=== PATIENT | female | born 1935 | race Caucasian/White ===

== ENCOUNTER 2017-05-15 17:50 | Inpatient (IN) ==
[2017-05-15] MEDS ORDERED: ACETAMINOPHEN 325 MG TABLET PO PRN (19:05)
[2017-05-15] MEDS ORDERED: LIDOCAINE W/ SODIUM BICARB 0.5 ML SYR SUBD PRN (19:05)
[2017-05-15] MEDS ORDERED: DOCUSATE 100 MG CAPSULE PO PRN (19:05)
[2017-05-15] MEDS ORDERED: NORMAL SALINE 10 ML SYRINGE FLUSH IVP PRN (19:05)
[2017-05-15] MEDS ORDERED: ONDANSETRON 4 MG/2 ML VIAL IVP PRN (19:05)
[2017-05-15] MEDS ORDERED: CALCIUM CARBONATE 500 MG (TUMS) CHEWABLE TABLET PO PRN (19:05)
[2017-05-15] MEDS ORDERED: HYDROcodone-APAP 5 MG -325 MG TABLET PO PRN (19:12)
[2017-05-15] MEDS: OMEPRAZOLE 40 MG CAPSULE PO SCH (21:20)
--- NOTE | 2017-05-15 21:40 | PDOC ---
HPI - History of Present Illness Date of Service: 05/15/17 Time of Service: 21:00 Chief Complaint: Left hip pain History of Present Illness: This very pleasant 81-year-old female with prior history of coronary artery disease post stents in March 2016, off of Plavix, and hypercholesterolemia, and dementia, according to her daughter, who presents after a fall today. Family she also has chronic dizziness and she had a fall back in October 2016 in which she had a concussion and a small fairly punctate and nonsurgical cerebral hemorrhage. Be that as it may, the patient states that she got up from a chair in her house, felt vertigo-like dizziness, twisted her feet, and fell. She was sent to the last emergency room, and found to have a left hip fracture. She was transferred here for definitive care of her fracture. She's not had a fracture of the bone before. She denies any chest pain, shortness breath, kidney problems, history of stroke, or other issues that would preclude her from doing surgery tomorrow. Labs were done in [place] but unfortunately were not back or sent with the transfer packet so I will have to repeat those now. She does have tenderness that is worsened or exacerbated when her left hip moves. She states Tylenol helped her pain in [place]. She has more than 4 metabolic equivalents in terms of her activities. Past Medical History Medical History: 1. Coronary artery disease, status post stent placement in 2016. 2. Chronic dizziness/probable vertigo or Mnire's disease possibility. 3. Hypercholesterolemia. 4. Chronic nausea. Surgical History: 1. Hysterectomy with appendectomy. 2. Cholecystectomy. 3. Colonoscopy and EGD in the past. Pertinent Family History: Apparently sister had a history of colon cancer. Past Social History: Does not smoke or drink alcohol. Has 2 children, has lived [place] a [place] in the [facility] for the past 60 years is for 60 years. Tobacco Use: Former Smoker (Quit smoking about a year and half ago) In the Past 12 Months, Have Used or Abuse Any of the Following Substance: None Alcohol Use: None Medication / Allergies Home Medications: Home Medications 3 Medication Instructions Recorded Confirmed Type Aspirin 1 tab PO DAILY 04/28/09 02/19/15 History Caltrate 1 tab PO DAILY 04/28/09 02/19/15 History Omeprazole 1 cap PO BID cap 01/22/15 02/19/15 History Ondansetron [Ondansetron Odt] 1 tab SL PRN PRN tab 01/22/15 02/19/15 History Cholecalciferol (Vitamin D3) 1,000 unit PO DAILY 02/19/15 02/19/15 History [Vitamin D] Allergies/Adverse Reactions: Allergies 3 Allergy/AdvReac Type Severity Reaction Status Date / Time Shellfish *RETIRED-11/16/11 Allergy Severe SHORTNESS Verified 02/19/15 08:01 [Shellfish] OF BREATH Sulfa (Sulfonamide Allergy Severe SHORTNESS Verified 02/19/15 08:01 Antibiotics) OF BREATH codeine [Codeine] AdvReac Intermediate DIZZINESS Verified 02/19/15 08:01 Review of Systems - Review of Systems All Systems: Reviewed & No Additional Complaints Except as Stated (Additional review systems and it was negative other than that discussed in the history of present illness and that noted below.) - Constitutional Constitutional: REPORTS: Negative System Review - Respiratory Respiratory: REPORTS: Negative System Review - Cardiovascular Cardiovascular: REPORTS: Negative System Review - Gastrointestinal Gastrointestinal / Abdominal: REPORTS: Nausea (States is chronic in nature, has been worked up with EGD, colonoscopy,) - Genitourinary Genitourinary: REPORTS: Other (Frequent urinary infections in the past) - Hematlogic / Lymphatic Hematologic / Lymphatic: REPORTS: Easy Bleeding/Bruising (Worse on Plavix, but has improved since Plavix is been discontinued) - Neurological Neurologic: REPORTS: Other (Shuffles occasionally.) Exam - Vitals Vital Signs: Vital Signs Height 5 ft 7 in Weight 120 lb - General General Appearance: No Acute Distress, Cooperative - Head Head Exam: Normal Inspection, Normocephalic, Atraumatic - Eye Eye Exam: POSITIVE: No Scleral Icterus - ENT ENT Exam: POSITIVE: Mucous Membranes Moist - Neck Neck Exam: Normal Inspection, No Tenderness, No Lymphadenopathy, No Thyromegaly - Respiratory Respiratory Exam: POSITIVE: Clear to Auscultation - Bilaterally, Breathing Non Labored - Cardiovascular Cardiovascular Exam: POSITIVE: RRR, No Murmur, No Clicks, No Gallops, No Rubs, No JVD - GI/Abdominal GI/Abdominal Exam: POSITIVE: Normal Bowel Sounds, Non Tender, Non Distended, Soft - Rectal Rectal Exam: POSITIVE: Deferred - External Exam: POSITIVE: Deferred Exam: POSITIVE: Sloan Catheter in Place (Urine appears clear) - Extremities Extremities Exam: POSITIVE: No Clubbing Present, No Edema Present, No Cyanosis Present Additional Extremities Exam Details: Left leg is shorter and externally rotated at the hip. Tenderness on left hip. No bruising. - Neurological Neurological Exam: POSITIVE: Alert, Oriented x 3 (Oriented to person place time situation tonight.), No Facial Droop, Speech Intact / Clear - Psychiatric Psychiatric Exam: POSITIVE: Normal Affect, Normal Mood Results - Labs Additional Lab Results: I have ordered several labs including a CMP, CBC with differential, PT and INR, will also get type and screen, folate, vitamin B-12, and vitamin D level - EKG Data -: EKG Interpreted by Me (I have ordered an EKG and it is pending) - Imaging Status: Image Reviewed by Me (I did look at the left hip films, plain films from [place], and they reveal a left femoral neck fracture.) Assessment and Plan - Patient Problems (1) Closed left hip fracture Current Visit: Yes Status: Acute Code(s): S72.002A - Fracture of unspecified part of neck of left femur, initial encounter for closed fracture Qualifiers: Encounter type: initial encounter Qualified Code(s): S72.002A - Fracture of unspecified part of neck of left femur, initial encounter for closed fracture (2) Coronary artery disease Current Visit: Yes Status: Acute Code(s): I25.10 - Atherosclerotic heart disease of [place] coronary artery without angina pectoris Qualifiers: Coronary Disease-Associated Artery/Lesion type: [place] artery [place] vs. transplanted heart: [place] heart Associated angina: without angina Qualified Code(s): I25.10 - Atherosclerotic heart disease of [place] coronary artery without angina pectoris (3) Chronic vertigo Current Visit: Yes Status: Acute Code(s): R42 - Dizziness and giddiness (4) Chronic nausea Current Visit: Yes Status: Acute Code(s): R11.0 - Nausea (5) Dementia Current Visit: Yes Status: Acute Code(s): F03.90 - Unspecified dementia without behavioral disturbance Qualifiers: Dementia type: unspecified type Dementia behavioral disturbance: without behavioral disturbance Qualified Code(s): F03.90 - Unspecified dementia without behavioral disturbance - Assessment / Plan Additional Assessment/Plan Details: Admit the patient. Claros's traction/nothing by mouth postmidnight/orthopedic consult/DVT prophylaxis postoperatively/PT and OT/try to discontinue Sloan catheter within 2 days of surgery/pain control/ Hold off on nortriptyline for now. Try to hold off on Carafate. May need to trial of proton pump inhibitor for chronic nausea Talked about swing bed, she may be interested in approaching a swing bed back in [place], [place], but will see how she does initially after surgery. Get labs today, get EKG today. Based on AHA/ACC nonvascular perioperative guidelines and evaluations, this patient would be cleared to proceed to the operating room with postoperative risk stratification. I recommend resuming aspirin on postop day #1. Patient is DO NOT RESUSCITATE Plan above discussed with patient and her daughter and they agreed.
[2017-05-15 21:59] LABS: BASOPHILS # (AUTO) 0.02 10*3/UL; BASOPHILS % (AUTO) 0.2 % (0-1); EOSINOPHILS # (AUTO) 0.05 10*3/UL; EOSINOPHILS % (AUTO) 0.6 % (0-8); Hematocrit [HCT] 36.9 % (37.0-47.0); Hemoglobin [HGB] 11.9 g/dL (12.0-16.0); LYMPHOCYTES # (AUTO) 1.18 10*3/uL; MEAN CORPUSCULAR HGB CONC 32.2 g/dL (33-37); MEAN CORPUSCULAR VOLUME 89.8 FL (81-99); MEAN PLATELET VOLUME 11.4 FL (7.4-12.2); MONOCYTES # (AUTO) 0.54 10*3/UL (0.3-0.8); MONOCYTES % (AUTO) 6.1 % (5-15); NEUTROPHILS # (AUTO) 6.99 10*3/UL; NEUTROPHILS % (AUTO) 79.6 % (50-80); RED BLOOD COUNT 4.11 10^6/uL (4.20-5.40)
[2017-05-15 22:04] LABS: BLOOD UREA NITROGEN 17 mg/dL (7-22); BUN/CREATININE RATIO 24.28 (6-20); SERUM ALBUMIN 3.9 g/dL (3.5-4.8)
--- NOTE | 2017-05-15 22:16 | EKG ---
[address] [place] [address] Measurements Intervals [place] Rate: 84 P: 67 MS: 169 QRS: -42 QRSD: 92 T: 57 QT: 372 QTc: 413 Interpretive Statements SINUS RHYTHM WITH SINUS ARRHYTHMIA LEFT AXIS DEVIATION [QRS AXIS < -30] RIGHT VENTRICULAR DELAY No previous ECG available for comparison Electronically Signed On 05-16-17 11:09:20 [facility] by Mitch Valderrama [email or web address]
[2017-05-15 22:36] LABS: PLATELET MORPHOLOGY COMMENT NORMAL MORPHOLOGY (NORM); RBC MORPHOLOGY COMMENT NORMAL MORPHOLOGY (NORM); WBC MORPHOLOGY COMMENT NORMAL MORPHOLOGY (NORM)
[2017-05-16] MEDS: Lactated Ringers 1,000 ML PRIMARY IV SCH ×3 (00:55→18:52)
[2017-05-16] MEDS: HYDROmorphone 2 MG/1 ML IVP PRN ×2 (01:11→08:31)
[2017-05-16 05:34] LABS: BASOPHILS # (AUTO) 0.03 10*3/UL; BASOPHILS % (AUTO) 0.5 % (0-1); EOSINOPHILS % (AUTO) 1.6 % (0-8); Hematocrit [HCT] 36.1 % (37.0-47.0); Hemoglobin [HGB] 11.7 g/dL (12.0-16.0); LYMPHOCYTES # (AUTO) 0.95 10*3/uL; MEAN CORPUSCULAR HEMOGLOBIN 29.2 PG (27-31); MEAN CORPUSCULAR HGB CONC 32.4 g/dL (33-37); MONOCYTES # (AUTO) 0.51 10*3/UL (0.3-0.8); MONOCYTES % (AUTO) 8.1 % (5-15); NEUTROPHILS # (AUTO) 4.67 10*3/UL; NEUTROPHILS % (AUTO) 74.4 % (50-80); RED BLOOD COUNT 4.01 10^6/uL (4.20-5.40)
[2017-05-16 05:54] LABS: BLOOD UREA NITROGEN 18 mg/dL (7-22); BUN/CREATININE RATIO 25.71 (6-20)
[2017-05-16 05:59] LABS: PLATELET MORPHOLOGY COMMENT NORMAL MORPHOLOGY (NORM); RBC MORPHOLOGY COMMENT NORMAL MORPHOLOGY (NORM); WBC MORPHOLOGY COMMENT NORMAL MORPHOLOGY (NORM)
[2017-05-16] MEDS ORDERED: LIDOCAINE HCL 2 % 10 ML JELLY URO-JECT TOPICAL PRN (06:34)
--- NOTE | 2017-05-16 08:29 | CONSULT ---
Consult Note - Consult Consult Date: 05/16/17 Reason for Consult: PreOp Consulation : Ortho Primary Care Provider: JOSE MENDES - History of Present Illness History of Present Illness: Billie is a pleasant 81-year-old female who got tripped up yesterday afternoon, falling in her home and breaking her left femoral neck. I spoke with the emergency room physician and Hema Russell. I was able to review her x-rays. It does not look like a fracture could be treated with screw fixation. It is varus impaction rather than valgus impaction. She probably would not do well with screw fixation. She was admitted through the emergency room directly to Dr. Chavis's service. I had a chance to visit with her this morning. Her daughter was present at the same time. She is in need of left hip hemiarthroplasty to replace the fractured femoral head. Exam reveals a very pleasant female. She is awake and alert sitting semi- reclined in her hospital bed. Left lower extremity is in 5 pounds of [place] traction. Skin laterally is intact. She is not overweight. X-rays reveal a left femoral neck fracture subcapital in nature. It appears to be in varus. Displaced on the lateral view. Impression: Displaced left femoral neck fracture. Plan: Is to recommend left hip hemiarthroplasty. Risks were discussed with the patient and her daughter. These include but are not limited to infection, femur fracture, leg length discrepancy, hip dislocation, pain, blood clot, anesthetic complications. She understands and agrees to proceed. Informed consent paperwork will be filled out. Plan on doing this this afternoon. Patient will remain nothing by mouth until then. Past Medical History Medical History: 1. Coronary artery disease, status post stent placement in 2017. 2. Chronic dizziness/probable vertigo or Mnire's disease possibility. 3. Hypercholesterolemia. 4. Chronic nausea. Surgical History: 1. Hysterectomy with appendectomy. 2. Cholecystectomy. 3. Colonoscopy and EGD in the past. Pertinent Family History: Apparently sister had a history of colon cancer. Past Social History: Does not smoke or drink alcohol. Has 2 children, has lived [place] a ranch in the [facility] area for the past 60 years is for 60 years. Tobacco Use: Former Smoker (Quit smoking about a year and half ago) In the Past 12 Months, Have Used or Abuse Any of the Following Substance: None Alcohol Use: None Medication / Allergies Home Medications: Home Medications 3 Medication Instructions Recorded Confirmed Type Aspirin 1 tab PO DAILY 04/28/09 02/19/15 History Caltrate 1 tab PO DAILY 04/28/09 02/19/15 History Omeprazole 1 cap PO BID cap 01/22/15 02/19/15 History Ondansetron [Ondansetron Odt] 1 tab SL PRN PRN tab 01/22/15 02/19/15 History Cholecalciferol (Vitamin D3) 1,000 unit PO DAILY 02/19/15 02/19/15 History [Vitamin D] Allergies/Adverse Reactions: Allergies 3 Allergy/AdvReac Type Severity Reaction Status Date / Time Shellfish *RETIRED-11/16/11 Allergy Severe SHORTNESS Verified 02/19/15 08:01 [Shellfish] OF BREATH Sulfa (Sulfonamide Allergy Severe SHORTNESS Verified 02/19/15 08:01 Antibiotics) OF BREATH codeine [Codeine] AdvReac Intermediate DIZZINESS Verified 02/19/15 08:01 meperidine [From Demerol] AdvReac NOT Verified 05/16/17 04:33 APPLICABLE Exam - Vitals Vital Signs: Vital Signs Temperature 98.2 F Temperature Source Temporal Artery Scan Pulse Rate [Pulse Oximeter] 83 Respiratory Rate 16 Blood Pressure [Right Arm] 163/78 Pulse Ox 90 Oxygen Delivery Method Room Air Height 5 ft 7 in Weight 120 lb Results - Labs CBC and BMP: 05/16/17 05:05 05/16/17 05:05
[2017-05-16] MEDS: OMEPRAZOLE 40 MG CAPSULE PO SCH (08:47)
[2017-05-16] MEDS ORDERED: CHOLECALCIFEROL 1000 IU TABLET PO SCH ×2 (09:00)
[2017-05-16 10:18] LABS: BILIRUBIN,URINE NEGATIVE (NEG); CLARITY,URINE CLEAR (CLEAR); COLOR,URINE YELLOW; GLUCOSE, URINE (UA) NEGATIVE (NEG); OCCULT BLOOD,URINE SMALL (NEG); PH,URINE 7.5 (5.0-8.5); PROTEIN,URINE TRACE mg/dl (NEG)
[2017-05-16 10:31] LABS: BACTERIA,URINE MANY; URINE SAMPLE TYPE CATH SPECIMEN; WBC,URINE 15-20
[2017-05-16] MEDS ORDERED: Lactated Ringers 1,000 ML PRIMARY IV ONE ×2 (12:09→16:08)
[2017-05-16] MEDS ORDERED: ceFAZolin Inj 2gm (Premix) 2 GM/50 ML BAG IV ONE ×2 (12:25→13:30)
[2017-05-16] MEDS ORDERED: DEXAMETHASONE PF 10 MG/1 ML VIAL ONE (12:25)
[2017-05-16] MEDS ORDERED: ONDANSETRON 4 MG/2 ML VIAL ONE (12:25)
[2017-05-16] MEDS ORDERED: MIDAZOLAM 5 MG/1 ML ONE (12:29)
[2017-05-16] MEDS ORDERED: PROPOFOL 10 MG/1 ML (200 MG/20 ML) VIAL IV ONE ×2 (12:29→13:26)
[2017-05-16] MEDS ORDERED: fentaNYL Inj 100 MCG/2 ML VIAL ONE (12:29)
[2017-05-16] MEDS ORDERED: Sodium Chloride 0.9% 2,000 ML ONE (13:08)
[2017-05-16] MEDS ORDERED: Sodium Chloride 0.9% 0 ML ONE (13:08)
[2017-05-16] MEDS ORDERED: KETAMINE 100 MG/1 ML - 5 ML ONE (13:26)
[2017-05-16] MEDS ORDERED: ePHEDrine Inj 50 MG/ML AMP ONE (13:55)
[2017-05-16] MEDS ORDERED: TRANEXAMIC ACID 1,000 MG / 10 ML VIAL ONE (14:28)
[2017-05-16] MEDS ORDERED: Sodium Chloride 0.9% 100 ML IV ONE (14:29)
[2017-05-16] MEDS ORDERED: SUFENTANIL 50 MCG/1 ML ONE (14:32)
[2017-05-16] MEDS ORDERED: HEPARIN 10,000 UNIT/1 ML ONE (14:33)
[2017-05-16] MEDS ORDERED: Sodium Chloride 0.9% vial 40 ML ONE (14:48)
[2017-05-16] MEDS ORDERED: BUPivacaine Liposome/PF (Exparel) Inj 20ml vial INFIL ONE (14:49)
[2017-05-16] MEDS ORDERED: HYDROmorphone 2 MG/1 ML IVP PRN (14:59)
[2017-05-16] MEDS ORDERED: LIDOCAINE W/ SODIUM BICARB 0.5 ML SYR SUBD PRN (14:59)
[2017-05-16] MEDS ORDERED: NORMAL SALINE 10 ML SYRINGE FLUSH IVP PRN (14:59)
[2017-05-16] MEDS ORDERED: Lactated Ringers 1,000 ML PRIMARY IV SCH (15:00)
[2017-05-16] MEDS ORDERED: Sodium Chloride 0.9% 250 ML IV ONE (15:16)
[2017-05-16] MEDS ORDERED: PHENYLEPHRINE 10,000 MCG/1 ML VIAL ONE (15:17)
[2017-05-16] MEDS ORDERED: Sodium Chloride 0.9% 500 ML ONE (16:13)
--- NOTE | 2017-05-16 16:34 | ORTHO.OP ---
Surgery Date: 05/16/17 Preoperative Diagnosis: Left hip femoral neck fracture Postoperative Diagnosis: Same Procedure: Left hip hemiarthroplasty using the Biomet echo fracture hip system Surgeon: Tate Manley MD Foot Drill Operator: OLAF Yates Anesthesia Provider: Jose Smith CRNA Anesthesia Type: General Estimated Blood Loss (mL): 370 Fluids: 3200 mL of lactated Ringer's Pathology: Femoral head sent to pathology Indications: Left hip fracture Findings: Fractured femoral neck Complications: None Operative Summary: Extubated and taken to recovery room in stable condition
--- NOTE | 2017-05-16 17:25 | CRNA.PROGR ---
Anesthesia Recovery Phase I - Post Anesthesia Evaluation Patient's Condition on Arrival in Phase I: Stable Pain Level: 0
--- NOTE | 2017-05-16 17:27 | CRNA.PROGR ---
Anesthesia Time - - Start date: 05/16/17 End date: 05/16/17 - Procedure/Recovery Time Anesthesia : Time In: 13:24 Anesthesia : Time Out: 17:21 Anesthesia : Total Time: 237 - Total Anesthesia Time Total Anesthesia Time (minutes): 237 - Other Weight: 54.431 kg Height: 5 ft 7 in Body Mass Index (BMI): 18.8 Physical Status: P2 Anesthesia Type: General Anesthesia : ET
[2017-05-16] MEDS ORDERED: MORPHINE SULFATE 2 MG/1 ML IVP PRN (18:31)
[2017-05-16] MEDS: D5-1/2NS + 20mEq KCL 1,000 ML PRIMARY IV SCH (19:23)
--- NOTE | 2017-05-16 19:38 | PDOC(PROG) ---
Date and Time of Service: 05/16/2017, 1935 Interval History: This patient as she just rolled back into the room after surgery and postoperative holding. No complaints of chest pain, shortness breath, but does have controlled hip pain at this time. Objective : Data - Labs CBC and BMP: 05/16/17 05:05 05/16/17 05:05 Additional Lab Results: Laboratory Results 05/15/17 05/15/17 05/15/17 Range/Units 21:51 21:51 21:51 WBC 8.79 (4.8-10.8) 10^3/uL RBC 4.11 L (4.20-5.40) 10^6/uL Hgb 11.9 L (12.0-16.0) g/dL Hct 36.9 L (37.0-47.0) % MCV 89.8 (81-99) FL MCH 29.0 (27-31) PG MCHC 32.2 L (33-37) g/dL RDW Std Deviation 41.2 (39-50) fL RDW Coeff of Michael 12.8 (11.5-14.5) % Plt Count 152 (140-350) 10*3/uL MPV 11.4 (7.4-12.2) FL Immature Gran % (Auto) 0.1 (0-5) % Neut % (Auto) 79.6 (50-80) % Lymph % (Auto) 13.4 (10-50) % Luce % (Auto) 6.1 (5-15) % Eos % (Auto) 0.6 (0-8) % Baso % (Auto) 0.2 (0-1) % Immature Gran # (Auto) 0.01 10*3/UL Neut # (Auto) 6.99 10*3/UL Lymph # (Auto) 1.18 10*3/uL Luce # (Auto) 0.54 (0.3-0.8) 10*3/UL Eos # (Auto) 0.05 10*3/UL Baso # (Auto) 0.02 10*3/UL WBC Morphology Comment Normal morphology (NORM) Plt Morphology Comment Normal morphology (NORM) RBC Morph Comment Normal morphology (NORM) PT 10.6 (9.7-11.4) secs INR 1.00 (0.00-5.90) N/A APTT 25.9 (22.6-36.2) SECS Sodium 139 (135-145) meq/L Potassium 3.8 (3.8-5.2) meq/L Chloride 102 (98-112) meq/L Carbon Dioxide 27 (23-33) meq/L Anion Gap 10 (5-20) BUN 17 (7-22) mg/dL Creatinine 0.7 (0.50-1.20) mg/dL BUN/Creatinine Ratio 24.28 H (6-20) Glucose 138 H (78-110) mg/dL Calculated Osmolality 291.0 (267-292) mOsm/kg Calcium 9.3 (8.7-10.7) mg/dL Total Bilirubin 1.0 (0.3-1.2) mg/dL AST 37 (8-39) IU/L ALT 43 (9-52) IU/L Alkaline Phosphatase 59 (38-126) IU/L Total Protein 6.2 (6.1-8.0) g/dL Albumin 3.9 (3.5-4.8) g/dL Globulin 2.3 L (2.50-4.10) g/dL Albumin/Globulin Ratio 1.60 (1.3-2.0) mg/g Vitamin B12 (239-931) pg/mL Vitamin D 25-Hydroxy (30-100) NG/ML Serum Folate (2.76-20.0) NG/ML Ur Collection Type Urine Color Urine Clarity (CLEAR) Urine pH (5.0-8.5) Ur Specific [place] (1.005-1.030) Urine Protein (NEG) mg/dl Urine Glucose (UA) (NEG) mg/dL Urine Ketones (NEG) Urine Occult Blood (NEG) Urine Nitrate (NEG) Urine Bilirubin (NEG) Urine Urobilinogen (0.2) mg/dL Ur Leukocyte Esterase (NEG) Urine RBC (NONE) /hpf Urine WBC (NONE) Ur Squamous Epith Cells (NONE) Ur Renal Epithelial Cell (NONE) Urine Crystals Urine Bacteria (NONE) Urine Casts Urine Mucus (NONE) Urine Trichomonas (NONE) Urine Yeast (NONE) Blood Type Antibody Screen 05/15/17 05/15/17 05/15/17 Range/Units 21:51 21:51 21:51 WBC (4.8-10.8) 10^3/uL RBC (4.20-5.40) 10^6/uL Hgb (12.0-16.0) g/dL Hct (37.0-47.0) % MCV (81-99) FL MCH (27-31) PG MCHC (33-37) g/dL RDW Std Deviation (39-50) fL RDW Coeff of Michael (11.5-14.5) % Plt Count (140-350) 10*3/uL MPV (7.4-12.2) FL Immature Gran % (Auto) (0-5) % Neut % (Auto) (50-80) % Lymph % (Auto) (10-50) % Luce % (Auto) (5-15) % Eos % (Auto) (0-8) % Baso % (Auto) (0-1) % Immature Gran # (Auto) 10*3/UL Neut # (Auto) 10*3/UL Lymph # (Auto) 10*3/uL Luce # (Auto) (0.3-0.8) 10*3/UL Eos # (Auto) 10*3/UL Baso # (Auto) 10*3/UL WBC Morphology Comment (NORM) Plt Morphology Comment (NORM) RBC Morph Comment (NORM) PT (9.7-11.4) secs INR (0.00-5.90) N/A APTT (22.6-36.2) SECS Sodium (135-145) meq/L Potassium (3.8-5.2) meq/L Chloride (98-112) meq/L Carbon Dioxide (23-33) meq/L Anion Gap (5-20) BUN (7-22) mg/dL Creatinine (0.50-1.20) mg/dL BUN/Creatinine Ratio (6-20) Glucose (78-110) mg/dL Calculated Osmolality (267-292) mOsm/kg Calcium (8.7-10.7) mg/dL Total Bilirubin (0.3-1.2) mg/dL AST (8-39) IU/L ALT (9-52) IU/L Alkaline Phosphatase (38-126) IU/L Total Protein (6.1-8.0) g/dL Albumin (3.5-4.8) g/dL Globulin (2.50-4.10) g/dL Albumin/Globulin Ratio (1.3-2.0) mg/g Vitamin B12 319 (239-931) pg/mL Vitamin D 25-Hydroxy 25.1 L (30-100) NG/ML Serum Folate > 20.0 H (2.76-20.0) NG/ML Ur Collection Type Urine Color Urine Clarity (CLEAR) Urine pH (5.0-8.5) Ur Specific [place] (1.005-1.030) Urine Protein (NEG) mg/dl Urine Glucose (UA) (NEG) mg/dL Urine Ketones (NEG) Urine Occult Blood (NEG) Urine Nitrate (NEG) Urine Bilirubin (NEG) Urine Urobilinogen (0.2) mg/dL Ur Leukocyte Esterase (NEG) Urine RBC (NONE) /hpf Urine WBC (NONE) Ur Squamous Epith Cells (NONE) Ur Renal Epithelial Cell (NONE) Urine Crystals Urine Bacteria (NONE) Urine Casts Urine Mucus (NONE) Urine Trichomonas (NONE) Urine Yeast (NONE) Blood Type A POSITIVE Antibody Screen Negative 05/16/17 05/16/17 05/16/17 Range/Units 05:05 05:05 05:05 WBC 6.27 (4.8-10.8) 10^3/uL RBC 4.01 L (4.20-5.40) 10^6/uL Hgb 11.7 L (12.0-16.0) g/dL Hct 36.1 L (37.0-47.0) % MCV 90.0 (81-99) FL MCH 29.2 (27-31) PG MCHC 32.4 L (33-37) g/dL RDW Std Deviation 40.9 (39-50) fL RDW Coeff of Michael 12.7 (11.5-14.5) % Plt Count 140 (140-350) 10*3/uL MPV 12.0 (7.4-12.2) FL Immature Gran % (Auto) 0.2 (0-5) % Neut % (Auto) 74.4 (50-80) % Lymph % (Auto) 15.2 (10-50) % Luce % (Auto) 8.1 (5-15) % Eos % (Auto) 1.6 (0-8) % Baso % (Auto) 0.5 (0-1) % Immature Gran # (Auto) 0.01 10*3/UL Neut # (Auto) 4.67 10*3/UL Lymph # (Auto) 0.95 10*3/uL Luce # (Auto) 0.51 (0.3-0.8) 10*3/UL Eos # (Auto) 0.10 10*3/UL Baso # (Auto) 0.03 10*3/UL WBC Morphology Comment Normal morphology (NORM) Plt Morphology Comment Normal morphology (NORM) RBC Morph Comment Normal morphology (NORM) PT 10.3 (9.7-11.4) secs INR 0.97 (0.00-5.90) N/A APTT 27.2 (22.6-36.2) SECS Sodium 139 (135-145) meq/L Potassium 4.0 (3.8-5.2) meq/L Chloride 104 (98-112) meq/L Carbon Dioxide 27 (23-33) meq/L Anion Gap 8 (5-20) BUN 18 (7-22) mg/dL Creatinine 0.7 (0.50-1.20) mg/dL BUN/Creatinine Ratio 25.71 H (6-20) Glucose 103 (78-110) mg/dL Calculated Osmolality 289.0 (267-292) mOsm/kg Calcium 9.1 (8.7-10.7) mg/dL Total Bilirubin (0.3-1.2) mg/dL AST (8-39) IU/L ALT (9-52) IU/L Alkaline Phosphatase (38-126) IU/L Total Protein (6.1-8.0) g/dL Albumin (3.5-4.8) g/dL Globulin (2.50-4.10) g/dL Albumin/Globulin Ratio (1.3-2.0) mg/g Vitamin B12 (239-931) pg/mL Vitamin D 25-Hydroxy (30-100) NG/ML Serum Folate (2.76-20.0) NG/ML Ur Collection Type Urine Color Urine Clarity (CLEAR) Urine pH (5.0-8.5) Ur Specific [place] (1.005-1.030) Urine Protein (NEG) mg/dl Urine Glucose (UA) (NEG) mg/dL Urine Ketones (NEG) Urine Occult Blood (NEG) Urine Nitrate (NEG) Urine Bilirubin (NEG) Urine Urobilinogen (0.2) mg/dL Ur Leukocyte Esterase (NEG) Urine RBC (NONE) /hpf Urine WBC (NONE) Ur Squamous Epith Cells (NONE) Ur Renal Epithelial Cell (NONE) Urine Crystals Urine Bacteria (NONE) Urine Casts Urine Mucus (NONE) Urine Trichomonas (NONE) Urine Yeast (NONE) Blood Type Antibody Screen 05/16/17 Range/Units 10:13 WBC (4.8-10.8) 10^3/uL RBC (4.20-5.40) 10^6/uL Hgb (12.0-16.0) g/dL Hct (37.0-47.0) % MCV (81-99) FL MCH (27-31) PG MCHC (33-37) g/dL RDW Std Deviation (39-50) fL RDW Coeff of Michael (11.5-14.5) % Plt Count (140-350) 10*3/uL MPV (7.4-12.2) FL Immature Gran % (Auto) (0-5) % Neut % (Auto) (50-80) % Lymph % (Auto) (10-50) % Luce % (Auto) (5-15) % Eos % (Auto) (0-8) % Baso % (Auto) (0-1) % Immature Gran # (Auto) 10*3/UL Neut # (Auto) 10*3/UL Lymph # (Auto) 10*3/uL Luce # (Auto) (0.3-0.8) 10*3/UL Eos # (Auto) 10*3/UL Baso # (Auto) 10*3/UL WBC Morphology Comment (NORM) Plt Morphology Comment (NORM) RBC Morph Comment (NORM) PT (9.7-11.4) secs INR (0.00-5.90) N/A APTT (22.6-36.2) SECS Sodium (135-145) meq/L Potassium (3.8-5.2) meq/L Chloride (98-112) meq/L Carbon Dioxide (23-33) meq/L Anion Gap (5-20) BUN (7-22) mg/dL Creatinine (0.50-1.20) mg/dL BUN/Creatinine Ratio (6-20) Glucose (78-110) mg/dL Calculated Osmolality (267-292) mOsm/kg Calcium (8.7-10.7) mg/dL Total Bilirubin (0.3-1.2) mg/dL AST (8-39) IU/L ALT (9-52) IU/L Alkaline Phosphatase (38-126) IU/L Total Protein (6.1-8.0) g/dL Albumin (3.5-4.8) g/dL Globulin (2.50-4.10) g/dL Albumin/Globulin Ratio (1.3-2.0) mg/g Vitamin B12 (239-931) pg/mL Vitamin D 25-Hydroxy (30-100) NG/ML Serum Folate (2.76-20.0) NG/ML Ur Collection Type Cath specimen Urine Color Yellow Urine Clarity Clear (CLEAR) Urine pH 7.5 (5.0-8.5) Ur Specific [place] 1.020 (1.005-1.030) Urine Protein Trace (NEG) mg/dl Urine Glucose (UA) Negative (NEG) mg/dL Urine Ketones 15 (NEG) Urine Occult Blood Small (NEG) Urine Nitrate Negative (NEG) Urine Bilirubin Negative (NEG) Urine Urobilinogen 2.0 (0.2) mg/dL Ur Leukocyte Esterase Trace (NEG) Urine RBC 5-10 (NONE) /hpf Urine WBC 15-20 (NONE) Ur Squamous Epith Cells None (NONE) Ur Renal Epithelial Cell None (NONE) Urine Crystals None Urine Bacteria Many (NONE) Urine Casts None Urine Mucus Rare (NONE) Urine Trichomonas None (NONE) Urine Yeast None (NONE) Blood Type Antibody Screen Objective : Exam - General General Appearance: No Acute Distress, Cooperative Additional General Exam Details: Vital Signs - Last Taken Temperature 98.2 F 05/16/17 18:26 Pulse Rate 98 05/16/17 18:59 Respiratory Rate 18 05/16/17 18:59 Blood Pressure 133/67 05/16/17 18:30 Pulse Ox 97 05/16/17 18:30 - Head Head Exam: Normal Inspection, Normocephalic, Atraumatic - Eye Eye Exam: No Scleral Icterus - ENT ENT Exam: Mucous Membranes Moist - Respiratory Respiratory Exam: Clear to Auscultation - Bilaterally, Breathing Non Labored - Cardiovascular Cardiovascular Exam: RRR, No Murmur, No Clicks, No Gallops, No Rubs, No JVD - GI/Abdominal GI/Abdominal Exam: Normal Bowel Sounds, Non Tender, Non Distended, Soft - Extremities Extremities Exam: No Clubbing Present, No Edema Present, No Cyanosis Present Additional Extremities Exam Details: Left hip, incision, dressed, clean dry and intact, ice is in place, adductor pillow is in place - Neurological Neurological Exam: Alert, No Facial Droop, Speech Intact / Clear Additional Neurological Exam Details: Granddaughter's report that the patient is quite confused and doesn't know where she is at. Assessment and Plan - Patient Problems (1) Closed left hip fracture Current Visit: Yes Status: Acute Code(s): S72.002A - Fracture of unspecified part of neck of left femur, initial encounter for closed fracture Qualifiers: Encounter type: initial encounter Qualified Code(s): S72.002A - Fracture of unspecified part of neck of left femur, initial encounter for closed fracture (2) Coronary artery disease Current Visit: Yes Status: Acute Code(s): I25.10 - Atherosclerotic heart disease of [place] coronary artery without angina pectoris Qualifiers: Coronary Disease-Associated Artery/Lesion type: [place] artery [place] vs. transplanted heart: [place] heart Associated angina: without angina Qualified Code(s): I25.10 - Atherosclerotic heart disease of [place] coronary artery without angina pectoris (3) Chronic vertigo Current Visit: Yes Status: Acute Code(s): R42 - Dizziness and giddiness (4) Chronic nausea Current Visit: Yes Status: Acute Code(s): R11.0 - Nausea (5) Dementia Current Visit: Yes Status: Acute Code(s): F03.90 - Unspecified dementia without behavioral disturbance Qualifiers: Dementia type: unspecified type Dementia behavioral disturbance: without behavioral disturbance Qualified Code(s): F03.90 - Unspecified dementia without behavioral disturbance - Assessment / Plan Additional Assessment/Plan Details: Patient is a high risk for developing delirium given her dementia. Check labs tomorrow. DVT prophylaxis. PT and OT. Try to limit a catheter soon as possible postoperatively as the patient will likely sandy more confusion from this. Drain management as per orthopedics. Wean pain medications as we can to help minimize confusion from pain medications and worsening delirium in the setting of her dementia. Probably will need a swing bed but she will likely want this back in [place] and directed me is such yesterday. I will going to put in a referral now though it may be a few days before this happens.
--- NOTE | 2017-05-16 20:07 | DI ---
XR HIP COMPLETE MIN 2VW U/L,05/16/2017 6:31 PM: Clinical History: Postoperative hip hemiarthroplasty. Previous Exam: None at this facility. Findings: 3 views of the left hip are obtained, and demonstrate postsurgical changes consistent with a left tot al hip arthroplasty. There is some subcutaneous free air. Overlying skin mitch are noted. Peripheral vascular calcifications are seen. There is air within the colon and a few loops of small bowel. Impression: Status post left total hip arthroplasty.
--- NOTE | 2017-05-16 20:27 | DI ---
XR HIP 1VW U/L,05/16/2017 10:01 AM: Clinical History: Hip prosthesis. Previous Exam: None at this facility. Findings: A single portable view of the right hip is obtained, and demonstrates diffuse osteopenia. Peripheral vascular calcifications are seen. No fractures are seen. 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
[2017-05-16] MEDS: DOCUSATE 100 MG CAPSULE PO SCH (21:00)
[2017-05-17] MEDS: D5-1/2NS + 20mEq KCL 1,000 ML PRIMARY IV SCH (05:10)
[2017-05-17 05:38] LABS: BASOPHILS # (AUTO) 0.01 10*3/UL; BASOPHILS % (AUTO) 0.1 % (0-1); EOSINOPHILS # (AUTO) 0 10*3/UL; EOSINOPHILS % (AUTO) 0 % (0-8); Hematocrit [HCT] 29.4 % (37.0-47.0); Hemoglobin [HGB] 9.3 g/dL (12.0-16.0); LYMPHOCYTES # (AUTO) 0.68 10*3/uL; MEAN CORPUSCULAR HEMOGLOBIN 28.7 PG (27-31); MEAN CORPUSCULAR HGB CONC 31.6 g/dL (33-37); MEAN CORPUSCULAR VOLUME 90.7 FL (81-99); MEAN PLATELET VOLUME 12.7 FL (7.4-12.2); MONOCYTES # (AUTO) 0.71 10*3/UL (0.3-0.8); MONOCYTES % (AUTO) 8.4 % (5-15); NEUTROPHILS # (AUTO) 7.02 10*3/UL; NEUTROPHILS % (AUTO) 83.3 % (50-80); RED BLOOD COUNT 3.24 10^6/uL (4.20-5.40)
[2017-05-17 05:51] LABS: PLATELET MORPHOLOGY COMMENT NORMAL MORPHOLOGY (NORM); RBC MORPHOLOGY COMMENT NORMAL MORPHOLOGY (NORM); WBC MORPHOLOGY COMMENT NORMAL MORPHOLOGY (NORM)
[2017-05-17 05:53] LABS: BLOOD UREA NITROGEN 13 mg/dL (7-22); BUN/CREATININE RATIO 21.66 (6-20)
--- NOTE | 2017-05-17 06:40 | CRNA.PROGR ---
Anesthesia Note - Progress Notes Anesthesia Progress Note: Post OP Anesthesia Note Pt is Awake alert and oriented, sitting up in bed reading the breakfast menu. She states that her pain is well under control. She has not had anything to eat yet but states she is hungry. The patient denies any residual problems from the general anesthetic. current VS are stable. Vital Signs - Last Taken Temperature 98.4 F 05/17/17 05:13 Pulse Rate 95 05/17/17 05:13 Respiratory Rate 16 05/17/17 05:13 Blood Pressure 138/61 05/17/17 05:13 Pulse Ox 97 05/17/17 05:13
--- NOTE | 2017-05-17 08:08 | ORTHO.PROG ---
Last Taken Vital Signs: Vital Signs - Last Taken Temperature 97.8 F 05/17/17 06:43 Pulse Rate 93 05/17/17 06:43 Respiratory Rate 17 05/17/17 06:43 Blood Pressure 131/60 05/17/17 06:43 Pulse Ox 98 05/17/17 06:43 Subjective: Patient is awake and alert this morning. Not having much pain. Objective: Vital signs stable patient is afebrile. Left hip dressing clean and dry. Drain will be removed later today. Limb lengths appear equal. Assessment: Impression: Doing well postop day 1 from left hip hemiarthroplasty. Plan: Plan: Begin physical therapy. Put her on Xarelto daily. She asked me about possibly going back to [facility] to be put in a swing bed there for a week or 2.
[2017-05-17] MEDS ORDERED: CYANOCOBALAMIN 1000 MCG/1 ML VIAL IM ONE (08:36)
[2017-05-17] MEDS: ASPIRIN EC 81 MG TABLET PO SCH (09:21)
[2017-05-17] MEDS: HYDROcodone-APAP 7.5 MG-325 MG TABLET PO PRN ×2 (09:21→21:27)
[2017-05-17] MEDS: Esomeprazole DR 20mg Capsule PO SCH (09:22)
[2017-05-17] MEDS: DOCUSATE 100 MG CAPSULE PO SCH ×3 (09:22→22:06)
--- NOTE | 2017-05-17 14:57 | PDOC(PROG) ---
Interval History: Doing well no complaints Objective : Data - Labs CBC and BMP: 05/17/17 04:17 05/17/17 04:17 Objective : Exam - General General Appearance: Cooperative - Eye Eye Exam: Normal Appearance, PERRL, EOMI, No Scleral Icterus - Neck Neck Exam: Normal Inspection, Full ROM, No Tenderness - Respiratory Respiratory Exam: Clear to Auscultation - Bilaterally, Breathing Non Labored, Normal To Percussion, Normal to Percussion and Palpation - Cardiovascular Cardiovascular Exam: RRR, No Murmur, No Clicks, No Gallops, No Rubs, PMI Non- Displaced - GI/Abdominal GI/Abdominal Exam: Normal Bowel Sounds, Non Tender, Non Distended, Soft, No Masses, No Hepatomegaly, No Splenomegaly, No Organomegaly Assessment and Plan - Patient Problems (1) Closed left hip fracture Current Visit: Yes Status: Acute Code(s): S72.002A - Fracture of unspecified part of neck of left femur, initial encounter for closed fracture Qualifiers: Encounter type: initial encounter Qualified Code(s): S72.002A - Fracture of unspecified part of neck of left femur, initial encounter for closed fracture (2) Coronary artery disease Current Visit: Yes Status: Acute Code(s): I25.10 - Atherosclerotic heart disease of [place] coronary artery without angina pectoris Qualifiers: Coronary Disease-Associated Artery/Lesion type: [place] artery [place] vs. transplanted heart: [place] heart Associated angina: without angina Qualified Code(s): I25.10 - Atherosclerotic heart disease of [place] coronary artery without angina pectoris (3) Chronic vertigo Current Visit: Yes Status: Acute Code(s): R42 - Dizziness and giddiness (4) Chronic nausea Current Visit: Yes Status: Acute Code(s): R11.0 - Nausea (5) Dementia Current Visit: Yes Status: Acute Code(s): F03.90 - Unspecified dementia without behavioral disturbance Qualifiers: Dementia type: unspecified type Dementia behavioral disturbance: without behavioral disturbance Qualified Code(s): F03.90 - Unspecified dementia without behavioral disturbance - Assessment / Plan Additional Assessment/Plan Details: Patient is doing great physical therapy and was worried that she cannot get her glasses on straight and the and the nurses when her room she is able to repeat this maneuver several times without issues her neuro exam is stone cold normal she moves all 4 extremities XRT also intact no speech impediments. She will get her Sloan out tomorrow and wants to pursue going to the [facility] for physical therapy.
[2017-05-17] MEDS: Rivaroxaban Tab 10 MG TAB PO SCH (18:00)
[2017-05-18] MEDS: D5-1/2NS + 20mEq KCL 1,000 ML PRIMARY IV SCH (00:27)
[2017-05-18] MEDS: HYDROcodone-APAP 7.5 MG-325 MG TABLET PO PRN ×5 (01:00→21:20)
[2017-05-18] MEDS: Esomeprazole DR 20mg Capsule PO SCH ×2 (04:40→06:19)
[2017-05-18 05:10] LABS: BASOPHILS # (AUTO) 0.04 10*3/UL; BASOPHILS % (AUTO) 0.5 % (0-1); EOSINOPHILS # (AUTO) 0.28 10*3/UL; EOSINOPHILS % (AUTO) 3.4 % (0-8); Hematocrit [HCT] 27.4 % (37.0-47.0); Hemoglobin [HGB] 8.5 g/dL (12.0-16.0); MEAN CORPUSCULAR HEMOGLOBIN 28.7 PG (27-31); MEAN CORPUSCULAR VOLUME 92.6 FL (81-99); MEAN PLATELET VOLUME 12.5 FL (7.4-12.2); MONOCYTES # (AUTO) 0.78 10*3/UL (0.3-0.8); MONOCYTES % (AUTO) 9.6 % (5-15); NEUTROPHILS # (AUTO) 5.94 10*3/UL; NEUTROPHILS % (AUTO) 72.9 % (50-80); RED BLOOD COUNT 2.96 10^6/uL (4.20-5.40)
[2017-05-18 05:11] LABS: PLATELET MORPHOLOGY COMMENT NORMAL MORPHOLOGY (NORM); RBC MORPHOLOGY COMMENT NORMAL MORPHOLOGY (NORM); WBC MORPHOLOGY COMMENT NORMAL MORPHOLOGY (NORM)
[2017-05-18 05:23] LABS: BLOOD UREA NITROGEN 13 mg/dL (7-22); BUN/CREATININE RATIO 21.66 (6-20)
[2017-05-18 05:26] LABS: HEMOGLOBIN A1C 5.38 % (4.2-6.0)
[2017-05-18] MEDS: ASPIRIN EC 81 MG TABLET PO SCH (09:13)
[2017-05-18] MEDS: DOCUSATE 100 MG CAPSULE PO SCH ×2 (09:13→21:15)
--- NOTE | 2017-05-18 11:20 | PDOC(PROG) ---
Interval History: Patient has no complaints and nursing is working on taken her Sloan out. No chest pain nausea vomiting Objective : Data - Labs CBC and BMP: 05/18/17 04:28 05/18/17 04:28 Objective : Exam - General General Appearance: Cooperative - Head Head Exam: Normal Inspection, Normocephalic, Atraumatic - Eye Eye Exam: Normal Appearance, PERRL, EOMI, No Scleral Icterus - Respiratory Respiratory Exam: Clear to Auscultation - Bilaterally, Breathing Non Labored, Normal To Percussion, Normal to Percussion and Palpation - Cardiovascular Cardiovascular Exam: RRR, No Murmur, No Clicks, No Gallops, No Rubs, PMI Non- Displaced - GI/Abdominal GI/Abdominal Exam: Normal Bowel Sounds, Non Tender, Non Distended, Soft, No Masses, No Hepatomegaly, No Splenomegaly, No Organomegaly Assessment and Plan - Patient Problems (1) Closed left hip fracture Current Visit: Yes Status: Acute Code(s): S72.002A - Fracture of unspecified part of neck of left femur, initial encounter for closed fracture Qualifiers: Encounter type: initial encounter Qualified Code(s): S72.002A - Fracture of unspecified part of neck of left femur, initial encounter for closed fracture (2) Coronary artery disease Current Visit: Yes Status: Acute Code(s): I25.10 - Atherosclerotic heart disease of [place] coronary artery without angina pectoris Qualifiers: Coronary Disease-Associated Artery/Lesion type: [place] artery [place] vs. transplanted heart: [place] heart Associated angina: without angina Qualified Code(s): I25.10 - Atherosclerotic heart disease of [place] coronary artery without angina pectoris (3) Chronic vertigo Current Visit: Yes Status: Acute Code(s): R42 - Dizziness and giddiness (4) Chronic nausea Current Visit: Yes Status: Acute Code(s): R11.0 - Nausea (5) Dementia Current Visit: Yes Status: Acute Code(s): F03.90 - Unspecified dementia without behavioral disturbance Qualifiers: Dementia type: unspecified type Dementia behavioral disturbance: without behavioral disturbance Qualified Code(s): F03.90 - Unspecified dementia without behavioral disturbance - Assessment / Plan Additional Assessment/Plan Details: Status post hip repair deferred to general orthopedic surgery I did discuss with her that the Dr. Manley prescribes her blood thinner for 35 days to avoid possible DVTs she agrees with this social work nurse is working on her placement in [facility] swing bed when available continue other medications
--- NOTE | 2017-05-18 13:27 | ORTHO.PROG ---
Last Taken Vital Signs: Vital Signs - Last Taken Temperature 98.6 F 05/18/17 11:22 Pulse Rate 95 05/18/17 11:22 Respiratory Rate 16 05/18/17 11:22 Blood Pressure 121/53 05/18/17 11:22 Pulse Ox 99 05/18/17 11:22 Subjective: Patient was sitting up in bed this morning. Color looks good. Not having much pain. Objective: Vital signs are stable patient is afebrile. Left hip dressing clean and dry. Limb lengths appear equal. Hemoglobin and hematocrit 8.5 and 27 Assessment: Impression: Doing well postop day 2 from left hip hemiarthroplasty Plan: Plan: Is to continue physical therapy. Weight-bear as tolerated with walker. We'll try to arrange to transfer her to [facility] sometime next week to be in a swing bed.
--- NOTE | 2017-05-18 16:09 | PTI REPORT ---
Thank you for the referral of Billie Kidd. She was seen on 05/17/17 for an inpatient evaluation status post left total hip replacement following a fall. SUBJECTIVE: The patient is an 81-year-old female. The patient reports she was at home and fell out of her chair which resulted in a fracture that was bad enough it warranted a total hip replacement. She states she lives in [place] with her family about 20 miles outside of [place] and states that if she isn't able to go home right away, she believes the best place for her would be in the [facility] under swingbed status. Her biggest concern at this time right now is of being inappropriately dressed when she gets up and walks. She has full expectations to be able to leave the hospital as soon as possible. The patient states that she is not a big fan of taking pills and according to the nursing staff had to be convinced to at least take one pain medication earlier today. PAST MEDICAL HISTORY: Past medical history can be found in the patient's medical record. OBJECTIVE FINDINGS: Pain: The patient denies any pain laying in bed; however, this did increase to a 7/10 with assisted bed mobility as well as sit to stand transfers. Bed mobility: The patient stated she wanted to try to perform bed mobility independently; however, required max assist x1, specifically for the left lower extremity as well as transferring from supine to edge of bed and tactile and verbal cues for the appropriate unsupported seated posture at the edge of the bed. It was observed the patient had a tendency to lean to the right as well as weight-bear all on her right hip. The patient was max assist x1 for bed mobility from sitting edge of bed back to supine and was dependent upon getting into a proper position. General observation: It is also noted at this time that the patient took off he glasses several times and had difficulty putting them on her face properly, having the tendency to hit the middle of her forehead with the ear piece and having to slide the eyeglass across her forehead for proper placement. Upon observation there was no slurred speech or facial droopage that was noted. Transfers: The patient was able to perform three sit to stand transfers; however , on the third she was relying heavily on the use of the bed on the posterior aspects of her legs. Ambulation: Ambulatory activities were not attempted due to the patient's weakened status as well as complaints of nausea, light headedness, and difficulty with weight-bearing. Incision: The patient's incision was unable to be inspected due to presence of post-op bandage. Edema: The patient does have Grade III edema. Strength/range of motion: Strength and range of motion were not able to be formally assessed due to the patient being one day post-op. ASSESSMENT: Problem List: Decreased ability to perform bed mobility/transfers/ambulation Decreased safety awareness Short-Term Goals: To be met by discharge from inpatient: Patient will be able to perform bed mobility with mod assist or less from supine to edge of bed. Patient will be able to ambulate up to 10 feet in order to perform toileting ADLs. Long-Term Goals: To be met following discharge from inpatient: Patient will be seen by outpatient physical therapy. TREATMENT PLAN: Patient will be seen B.I.D during the week and one time per day over the weekend as an inpatient to address the above goals and objectives. INITIAL TREATMENT: Treatment today consisted of the initial evaluation as well as issuing the patient a walker. The therapist spoke with the nurse as well as Dr. Katz in regards to concerns with the patient's mobility. It is my recommendation at this time that the patient not be transferred from the hospital due to her poor mobility. JAIMIE
--- NOTE | 2017-05-18 16:58 | OT.PROG ---
Progress Note Progress Note: S: pt [place] She is somewhat confused with everything today. O: pt was seen in her room in the pm. she needed max A with bed mobility from supine to EOB. She completed Min A transfer x2 with mod Vc's to completed tasks once she was standing up. She was transferred downstairs in w/c and completed x1 more transfer with min A x2 once again. PT tool over treatment at this point. A: pt needs vc's to complete tasks such as transfers but is able to complete walking with cues. P: continue per POC.
[2017-05-18] MEDS: Rivaroxaban Tab 10 MG TAB PO SCH (17:11)
[2017-05-19] MEDS: HYDROcodone-APAP 7.5 MG-325 MG TABLET PO PRN ×2 (00:39→08:35)
[2017-05-19 05:18] LABS: BLOOD UREA NITROGEN 15 mg/dL (7-22)
[2017-05-19 05:25] LABS: BASOPHILS # (AUTO) 0.05 10*3/UL; BASOPHILS % (AUTO) 0.6 % (0-1); EOSINOPHILS # (AUTO) 0.32 10*3/UL; EOSINOPHILS % (AUTO) 3.9 % (0-8); Hematocrit [HCT] 27.9 % (37.0-47.0); Hemoglobin [HGB] 8.7 g/dL (12.0-16.0); LYMPHOCYTES # (AUTO) 1.13 10*3/uL; MEAN CORPUSCULAR HEMOGLOBIN 28.8 PG (27-31); MEAN CORPUSCULAR HGB CONC 31.2 g/dL (33-37); MEAN CORPUSCULAR VOLUME 92.4 FL (81-99); MEAN PLATELET VOLUME 12.4 FL (7.4-12.2); MONOCYTES # (AUTO) 0.72 10*3/UL (0.3-0.8); MONOCYTES % (AUTO) 8.8 % (5-15); NEUTROPHILS # (AUTO) 5.98 10*3/UL; NEUTROPHILS % (AUTO) 72.8 % (50-80); RED BLOOD COUNT 3.02 10^6/uL (4.20-5.40)
[2017-05-19 05:32] LABS: PLATELET MORPHOLOGY COMMENT NORMAL MORPHOLOGY (NORM); RBC MORPHOLOGY COMMENT NORMAL MORPHOLOGY (NORM); WBC MORPHOLOGY COMMENT NORMAL MORPHOLOGY (NORM)
[2017-05-19] MEDS: Esomeprazole DR 20mg Capsule PO SCH (07:37)
[2017-05-19] MEDS: DOCUSATE 100 MG CAPSULE PO SCH ×2 (08:35→20:12)
[2017-05-19] MEDS: ASPIRIN EC 81 MG TABLET PO SCH (08:35)
--- NOTE | 2017-05-19 08:59 | PDOC(PROG) ---
Interval History: No complaints doing well with therapy I discussed the case with the physical therapy. She still waiting on the bed for [facility] but physical therapy said she needs to be more independent before she goes they're looking at Sunday or Sunday of next week I will like to make this patient swing bed but I've had the supervisor front to the person see if they could contact somebody to authorize this there is no health and social care teacher here on weekends Objective : Data - Labs CBC and BMP: 05/19/17 04:45 05/19/17 04:45 Objective : Exam - General General Appearance: No Acute Distress, Cooperative - Respiratory Respiratory Exam: Clear to Auscultation - Bilaterally, Breathing Non Labored, Normal To Percussion, Normal to Percussion and Palpation - Cardiovascular Cardiovascular Exam: RRR, No Murmur, No Clicks, No Gallops, No Rubs, PMI Non- Displaced - GI/Abdominal GI/Abdominal Exam: Normal Bowel Sounds, Non Tender, Non Distended, Soft, No Masses, No Hepatomegaly, No Splenomegaly, No Organomegaly Assessment and Plan - Patient Problems (1) Closed left hip fracture Current Visit: Yes Status: Acute Comment: Continue PTOT and anticoagulation as per orthopedic surgery. Patient is awaiting placement in [facility] health and social care teacher was consulted and is working on it Code(s): S72.002A - Fracture of unspecified part of neck of left femur, initial encounter for closed fracture Qualifiers: Encounter type: initial encounter Qualified Code(s): S72.002A - Fracture of unspecified part of neck of left femur, initial encounter for closed fracture (2) Coronary artery disease Current Visit: Yes Status: Acute Comment: Stable at present time Code(s): I25.10 - Atherosclerotic heart disease of [place] coronary artery without angina pectoris Qualifiers: Coronary Disease-Associated Artery/Lesion type: [place] artery [place] vs. transplanted heart: [place] heart Associated angina: without angina Qualified Code(s): I25.10 - Atherosclerotic heart disease of [place] coronary artery without angina pectoris (3) Chronic vertigo Current Visit: Yes Status: Acute Code(s): R42 - Dizziness and giddiness (4) Chronic nausea Current Visit: Yes Status: Acute Comment: Improved Code(s): R11.0 - Nausea (5) Dementia Current Visit: Yes Status: Acute Comment: Stable waxes and wanes Code(s): F03.90 - Unspecified dementia without behavioral disturbance Qualifiers: Dementia type: unspecified type Dementia behavioral disturbance: without behavioral disturbance Qualified Code(s): F03.90 - Unspecified dementia without behavioral disturbance
--- NOTE | 2017-05-19 11:46 | ORTHO.PROG ---
Last Taken Vital Signs: Vital Signs - Last Taken Temperature 97.8 F 05/19/17 09:00 Pulse Rate 97 05/19/17 09:00 Respiratory Rate 20 05/19/17 09:00 Blood Pressure 135/62 05/19/17 09:00 Pulse Ox 97 05/19/17 09:00 Subjective: I visited with the patient on physical therapy this morning. She had just completed her session when I saw her. Jane the therapist reported that she did much better today than the days previous. Was able to stand up easier and take a few steps. Objective: Vital signs stable patient is afebrile. Left hip incision clean and dry. The dressing is in place. Gentle flexion- extension through the hip did not seem to be uncomfortable. Assessment: Impression: Doing well 3 days out from left hip hemiarthroplasty. Plan: Plan: Continue physical therapy and inpatient care. We'll continue to follow her. Possible transfer to [facility] next week depending on how she progresses.
[2017-05-19] MEDS ORDERED: CALCIUM CARBONATE 500 MG (TUMS) CHEWABLE TABLET PO PRN (12:16)
[2017-05-19] MEDS: Rivaroxaban Tab 10 MG TAB PO SCH (17:15)
[2017-05-19] MEDS: ONDANSETRON 4 MG/2 ML VIAL IVP PRN (20:06)
[2017-05-20] MEDS: HYDROcodone-APAP 7.5 MG-325 MG TABLET PO PRN (00:02)
[2017-05-20] MEDS: ONDANSETRON 4 MG/2 ML VIAL IVP PRN ×3 (00:02→16:00)
[2017-05-20] MEDS: Esomeprazole DR 20mg Capsule PO SCH (07:17)
[2017-05-20] MEDS: NORMAL SALINE 10 ML SYRINGE FLUSH IVP PRN ×2 (10:02→16:00)
[2017-05-20] MEDS: DOCUSATE 100 MG CAPSULE PO SCH ×2 (10:02→20:09)
[2017-05-20] MEDS: ASPIRIN EC 81 MG TABLET PO SCH (10:02)
--- NOTE | 2017-05-20 13:18 | PDOC(PROG) ---
Interval History: Patient has no complaints Objective : Data - Labs CBC and BMP: 05/19/17 04:45 05/19/17 04:45 Objective : Exam - General General Appearance: Cooperative - Neck Neck Exam: Normal Inspection, Full ROM, No Tenderness - Respiratory Respiratory Exam: Clear to Auscultation - Bilaterally, Breathing Non Labored, Normal To Percussion, Normal to Percussion and Palpation - Cardiovascular Cardiovascular Exam: RRR, No Murmur, No Clicks, No Gallops, No Rubs, PMI Non- Displaced - GI/Abdominal GI/Abdominal Exam: Normal Bowel Sounds, Non Tender, Non Distended, Soft, No Masses, No Hepatomegaly, No Splenomegaly, No Organomegaly Assessment and Plan - Patient Problems (1) Closed left hip fracture Current Visit: Yes Status: Acute Comment: Deferred to general surgery orthopedic surgery PTOT Code(s): S72.002A - Fracture of unspecified part of neck of left femur, initial encounter for closed fracture Qualifiers: Encounter type: initial encounter Qualified Code(s): S72.002A - Fracture of unspecified part of neck of left femur, initial encounter for closed fracture (2) Coronary artery disease Current Visit: Yes Status: Acute Comment: Stable Code(s): I25.10 - Atherosclerotic heart disease of [place] coronary artery without angina pectoris Qualifiers: Coronary Disease-Associated Artery/Lesion type: [place] artery [place] vs. transplanted heart: [place] heart Associated angina: without angina Qualified Code(s): I25.10 - Atherosclerotic heart disease of [place] coronary artery without angina pectoris (3) Chronic vertigo Current Visit: Yes Status: Acute Code(s): R42 - Dizziness and giddiness (4) Hypertension Current Visit: Yes Status: Acute Comment: I will add Norvasc 10 mg and this worked very well Code(s): I10 - Essential (primary) hypertension (5) Postoperative urinary retention Current Visit: Yes Status: Acute Comment: Continue straight catheter when necessary Code(s): N99.89 - Other postprocedural complications and disorders of genitourinary system; R33.8 - Other retention of urine
[2017-05-20] MEDS ORDERED: LIDOCAINE HCL 2 % 10 ML JELLY URO-JECT TOPICAL PRN (16:29)
[2017-05-20] MEDS: Rivaroxaban Tab 10 MG TAB PO SCH (18:16)
[2017-05-21] MEDS: HYDROcodone-APAP 7.5 MG-325 MG TABLET PO PRN ×2 (02:54→08:40)
[2017-05-21 06:56] VITALS: RESP 18; O2SAT 90
[2017-05-21] MEDS: Esomeprazole DR 20mg Capsule PO SCH (07:41)
[2017-05-21] MEDS: ASPIRIN EC 81 MG TABLET PO SCH (08:40)
[2017-05-21] MEDS: DOCUSATE 100 MG CAPSULE PO SCH (08:40)
[2017-05-21 11:10] VITALS: BP 96/52; TEMP 98.1
--- NOTE | 2017-05-21 11:41 | DCSUMMARY ---
Hospitalization Summary Hospital Course: Final Discharge Diagnosis: Diagnostic Data, Laboratory Data, and Procedures of Signifigance: CBC and BMP 05/19/17 04:45 05/19/17 04:45 History and Physical pertinent to Admission: Past Medical History Medical History: 1. Coronary artery disease, status post stent placement in 2017. 2. Chronic dizziness/probable vertigo or Mnire's disease possibility. 3. Hypercholesterolemia. 4. Chronic nausea. Surgical History: 1. Hysterectomy with appendectomy. 2. Cholecystectomy. 3. Colonoscopy and EGD in the past. Pertinent Family History: Apparently sister had a history of colon cancer. Past Social History: Does not smoke or drink alcohol. Has 2 children, [place] in the [facility] for the past 60 years is for 60 years. Course of Hospitalization: This is a very nice 81-year-old female with past medical history significant for coronary artery disease post stents in March 2016 now off Plavix patient sustained a fall at her house and had a left hip fracture which was repaired by Dr. Tate Manley. She is doing quite well postop and now waiting for swing bed to be accepted in [place] where the patient is from. She had some issues with the urinary retention we did take the Sloan out and had to straight catheter for 2 days discuss case with Dr. Harris urology in [place] and Sloan was reinserted Flomax was recommended and the patient to follow-up as an outpatient in about a week and a half in [place] urology with the Sloan in place. Also her blood pressure was a little high and she was started on Norvasc. I just got word from the social service department and Dr. Weiner that she was accepted in [place] by Dr. Kwong On the date of discharge, the patient was examined: Gen.: No acute distress, alert, nontoxic Heart: Regular rate and rhythm, no murmurs, clicks, gallops, or rubs Lungs: Clear to auscultation bilaterally, breathing is nonlabored Abdomen/GI: Normal tones on auscultation, soft, nontender, nondistended Musculoskeletal/extremities: No clubbing, cyanosis, or edema Vitals reviewed and are listed below Vital Signs (24 hrs) Temp Pulse Resp BP BP Pulse Ox 05/21/17 11:09 98.1 F 98 18 96/52 90 05/21/17 06:56 97.7 F 106 H 18 117/55 90 05/21/17 05:23 93 05/21/17 04:40 98.6 F 117 H 22 116/60 93 05/21/17 00:22 97.4 F 98 16 138/64 94 05/20/17 20:12 98.7 F 107 H 20 110/53 91 05/20/17 19:00 18 05/20/17 16:12 97.5 F 109 H 18 141/56 91 05/20/17 12:14 97.1 F 92 20 133/55 92 Assessment and Plan: 1. As per discharge assessments above 2. Disposition: [facility] continue PT OT as per Dr. Tate Manley and physical therapist Department 3. Condition on discharge, stable and improved. 4. Diet: regular diet 5. Activities: resume normal activities 6. Follow-Up: With urology he will need an appointment in about one week and a half as an outpatient with Sloan left inserted as per Dr. Harris 1. PCP 2. 7. Medications at the Time of Discharge: Home Medications 3 Medication Instructions Recorded Confirmed Type Aspirin 1 tab PO DAILY 04/28/09 05/16/17 History Caltrate 1 tab PO DAILY 04/28/09 05/16/17 History Ondansetron [Ondansetron Odt] 1 tab SL PRN PRN tab 01/22/15 05/16/17 History Cholecalciferol (Vitamin D3) 1,000 unit PO DAILY 02/19/15 05/16/17 History [Vitamin D] Nortriptyline Cap [Pamelor Cap] 10 mg PO BEDTIME 05/17/17 05/17/17 History Rosuvastatin Calcium 20 mg PO BEDTIME 05/17/17 05/17/17 History Home Medications 3 Medication Instructions Recorded Confirmed Type Aspirin 1 tab PO DAILY 04/28/09 05/16/17 History Caltrate 1 tab PO DAILY 04/28/09 05/16/17 History Cholecalciferol (Vitamin D3) 1,000 unit PO DAILY 02/19/15 05/16/17 History [Vitamin D3] Nortriptyline Cap [Pamelor Cap] 10 mg PO BEDTIME 05/17/17 05/17/17 History Rosuvastatin Calcium 20 mg PO BEDTIME 05/17/17 05/17/17 History Amlodipine Besylate [Norvasc] 10 mg PO DAILY@2100 tab 05/21/17 Rx Calcium Carbonate [Tums] 2 tab PO Q4H PRN tab.chew 05/21/17 Rx Docusate Sodium [Colace] 100 mg PO BID cap 05/21/17 Rx Esomeprazole Magnesium [Nexium] 20 mg PO DAILY@0630 capsule.dr 05/21/17 Rx HYDROcodone/APAP 7.5/325 Tab 1 - 2 tab PO Q4H PRN tab 05/21/17 Rx [[place] 7.5/325 Tab] Morphine Inj [morphine Inj] 1 - 5 mg IVP Q2H PRN carpuject 05/21/17 Rx Rivaroxaban [Xarelto] 10 mg PO C DIN tab 05/21/17 Rx 8. Time, care, counseling and coordination of care for this discharge is greater than 30 minutes. Exam - Vitals Vital Signs: Vital Signs Temperature 98.1 F Temperature Source Temporal Artery Scan Pulse Rate [Apical] 90 Pulse Rate [Pulse Oximeter] 98 Pulse Rate 95 Respiratory Rate 18 Blood Pressure [Left Arm] 96/52 Blood Pressure [Right Arm] 138/64 Blood Pressure 148/74 Pulse Ox 90 Oxygen Flow Rate 1 Oxygen Delivery Method Room Air Height 5 ft 7 in Weight 119 lb 6 oz Patient Problems - Patient Problem List (1) Closed left hip fracture Current Visit: Yes Status: Acute Code(s): S72.002A - Fracture of unspecified part of neck of left femur, initial encounter for closed fracture Qualifiers: Encounter type: initial encounter Qualified Code(s): S72.002A - Fracture of unspecified part of neck of left femur, initial encounter for closed fracture Category: Medical (2) Coronary artery disease Current Visit: Yes Status: Acute Code(s): I25.10 - Atherosclerotic heart disease of [place] coronary artery without angina pectoris Qualifiers: Coronary Disease-Associated Artery/Lesion type: [place] artery [place] vs. transplanted heart: [place] heart Associated angina: without angina Qualified Code(s): I25.10 - Atherosclerotic heart disease of [place] coronary artery without angina pectoris Category: Medical (3) Chronic vertigo Current Visit: Yes Status: Acute Code(s): R42 - Dizziness and giddiness Category: Medical (4) Hypertension Current Visit: Yes Status: Acute Code(s): I10 - Essential (primary) hypertension Category: Medical (5) Postoperative urinary retention Current Visit: Yes Status: Acute Code(s): N99.89 - Other postprocedural complications and disorders of genitourinary system; R33.8 - Other retention of urine Category: Medical
--- NOTE | 2017-05-21 12:19 | OT.PROG ---
Progress Note Progress Note: Occupational therapy: 20 min S: pt stated she was feeling better today O: pt completed YTB exercises of biceps curls x15, triceps x15, chest pulls x15 , shoulder flexion x15, abduction x15, rows x15. A: pt was slow with exercises today but tolerated session well. P: continue POC
--- NOTE | 2017-05-21 14:48 | PT AM DAY ---
Diagnosis : Left Total Hip Arthroplasty AM - Physical Therapy S: Nursing staff states they continue to have to prompt her and encourage her to take any type of pain medication. O: Today's therapy consisted of max assist x1 for bed mobility from supine to edge of bed followed by 12 sit to stand transfers. We attempted ambulation; however, due to the patient demonstrating posterior loss of balance strategies requiring an anterior force as well as continual verbal and tactile cues for proper walker management, ambulation was not possible. The patient became so fatigued, she was unable to even sit edge of bed unsupported, requiring assistance, and finally required max assist for a stand pivot transfer from her bed into the chair as well as being dependent with positioning in the chair. When in the chair, the patient was instructed in therapeutic exercises including quad sets, ankle pumps, and glut sets. The patient also received an application of ice x10 minutes including set up to the left hip. A: The patient is having difficulty with righting her balance, demonstrating a posterior loss of balance. We will progress toward ambulatory activities as the patient is able to tolerate. P: Continue seeing patient BID during the week and one time per day over the weekend for transfers, ambulation, and range of motion/strengthening exercises. MTDD
--- NOTE | 2017-05-21 14:52 | PT PM DAY ---
Diagnosis : Left Total Hip Arthroplasty PM - Physical Therapy S: The patient reports she is very fatigued but is determined to get better. O: Today's physical therapy was initiated down in the PT gym following completion of occupational therapy. She was able to ambulate with walker, gait belt, and contact guard assist as well as mod to max assist for lower extremity initiation with weight-bearing as tolerated and 2 liters of oxygen via nasal cannula approximately two steps from her wheelchair to the plinth. She was able to perform therapeutic exercises in an unsupported seated position on the plinth including heel raises, long arc quads, seated marching, and isometric hip abduction/adduction, all x15 followed by 3 sit to stand transfers with weight-bearing activities for up to a minute each. She then demonstrated the ability to ambulate up to 5 feet; again with walker, gait belt, and mod to min assist for lower extremity initiation before requiring a wheelchair. She was taken back upstairs via wheelchair and performed a stand pivot transfer from the walker to her chair. The patient was given an ice pack for her left hip and was left with call light in place. A: The patient was able to greatly progress this PM session, being able to ambulate. For safety concerns, she does require verbal and tactile cues for hand placement as well as walker management. P: Continue seeing patient BID during the week and one time per day over the weekend for transfers, ambulation, and range of motion/strengthening exercises. MTDD
--- NOTE | 2017-05-21 15:35 | PT AM DAY ---
Diagnosis : Left Total Hip Arthroplasty AM - Physical Therapy S: The patient reports she is questioning when she is going to be able to go home. O: Today's therapy consisted of the patient requiring mod assist for bed mobility from supine to edge of bed, mainly consisting of tactile and verbal cues for proper hand placement. She was able to perform weight-bearing as tolerated sit to stand transfer over to the commode with use of walker, gait belt, and contact guard assistance as well as verbal cues for propre hand placement and walker management. The patient performed another stand pivot transfer to the wheelchair and was brought downstairs to the physical therapy department where she ambulated approximately 3 steps to the [facility]. The patient transferred from sit to supine and she received an application of moist heat pack x20 minutes including set up to the left hip. She then performed therapeutic exercises and functional activities including red theaband resisted biceps curls, triceps extension, and horizontal shoulder abduction followed by ankle theraband exercises in all planes, all x10-15 repetitions each. The patient then performed quad sets with the left lower extremity, heel slides, and assisted hip abduction/adduction within her pain tolerance. The patient required min assist for bed mobility from supine to edge of bed. Today the patient was able to sit at edge of bed unsupported for greater than 5 minutes without difficulty. She performed 3 sit to stand transfers, again requiring verbal cues for proper hand placement on the mat table vs. trying to pull herself up with the walker. She then ambulated approximately 10 feet with walker, gait belt, contact guard assistance, and weight-bearing as tolerated on the left lower extremity with 2 liters of oxygen via nasal cannula. The patient was taken back upstairs to her room via wheelchair and transferred to her chair with chair alarm set and call light within reach. A: During today's treatment Dr. Manley spoke with the patient, stating he would like for her to stay in the hospital for a few more days before being transferred to [facility] in [place]. The patient is doing much better with her safety awareness but still requires verbal and sometime tactile cues for proper hand placement as well as walker management. P: Continue seeing patient BID during the week and one time per day over the weekend for transfers, ambulation, and range of motion/strengthening exercises. MTDD
--- NOTE | 2017-05-21 16:22 | PT AM DAY ---
Diagnosis : Left Total Hip Arthroplasty AM - Physical Therapy S: The patient reports she was very fatigued after yesterday's treatment but states her spirits are very high. She states she is so pleased that she is making such big improvements finally. O: The patient was able to perform bed mobility with mod assist x1 for the left lower extremity. She then ambulated 5 feet before requiring a wheelchair and being brought downstairs to therapy. She still is dependent for lower extremity dressing but was able to be evaluated by occupational therapy today. She received an application of moist heat pack x20 minutes including set up to the left hip while performing therapeutic exercises including 4 pound bench press with a cane, red theraband upper extremity activities in all planes x10 each, four way ankle exercises with theraband, quad sets, heel slides, assisted hip abduction/adduction, unsupported seated long arc quads, marching, heel raises, and box step ups on the #1 box. The patient was able to ambulate up to 20 feet today with weight-bearing as tolerated on the left lower extremity with walker, gait belt, and contact guard assist. A: The patient is making gains daily now with her strength as well as ambulation. We will look into her being transferred to the [facility] for swingbed status starting Sunday. P: Continue seeing patient BID during the week and one time per day over the weekend for transfers, ambulation, and range of motion/strengthening exercises. MTDD
--- NOTE | 2017-05-22 10:19 | OTI REPORT ---
Thank you for the referral of Billie Kidd. She was seen on 05/20/17 for an occupational therapy inpatient evaluation status post left total hip arthroplasty. SUBJECTIVE: The patient is an 81-year-old female who had hip surgery. Prior to admission the patient was independent with all ADLs and functional activities. She does have a higher toilet down the hallway, but her closest bathroom has a lower toilet. She wanted to make sure that a high rise toilet seat would fit in her bathroom before we issued her one. PAST MEDICAL HISTORY: Past medical history can be found in the patient's medical record. OBJECTIVE FINDINGS: General observations: Today the patient was pretty nauseated. Activities of daily living: Today the patient was educated and instructed in adaptive devices. Today the patient was issued a driller hand, sock aide, and bath sponge and instructed in their use. The patient required max assist secondary to the nausea that she was experiencing. Bed mobility: The patient requires min assist to move lower extremity when performing bed mobility. Transfers: The patient requires min assist to transfer from sit to stand. ASSESSMENT: At this time the patient would benefit from skilled occupational therapy to address adaptive devices and using these to dress self. She may need a high rise toilet seat, but she wants to check with her prior to getting one. Short-Term Goals: To be met by discharge from inpatient: Patient will be able to dress self with use of adaptive equipment independently. Patient will be able to perform a toilet transfer independently. Patient will demonstrate hip precautions during all transfers. Long-Term Goals: To be met following discharge from inpatient: Patient will return home, demonstrating modified independence with all dressing activities and ADLs. TREATMENT PLAN: Patient will be seen B.I.D during the week and one time per day over the weekend as an inpatient to address the above goals and objectives. INITIAL TREATMENT: Treatment today consisted of the initial evaluation activities only. JAIMIE
== END 2017-05-21 14:27 | disposition home or self-care (01) | DRG 470 ==
LOC: MED/SURG 19:40 → OPS 05-16 11:45 → MED/SURG 05-16 18:06
PROVIDERS: ADMIT Family Medicine; ATTEND Family Medicine